=== PATIENT | female | born 1980 | race Caucasian/White ===

== ENCOUNTER 2021-02-28 07:16 | Emergency (ER) | payer MEDICAID ==
[~2021-02-28] VITALS: Ht 172.7 cm; Wt 77.1 kg
[2021-02-28 07:23] VITALS: BP 138/78
--- NOTE | 2021-02-28 07:27 | NUR ---
pt ambulated to bed 04
--- NOTE | 2021-02-28 07:31 | NUR ---
ERMD AT BEDSIDE.
--- NOTE | 2021-02-28 07:50 | NUR ---
41/F BIB SELF TO ED WITH C/O BACK PAIN, NAUSEA, DYSURIA AND HEMATURIA. PATIENT STATES SYMPTOMS BEGAN YESTERDAY AND HAVE BEEN WORSENING SINCE. PATIENT STATES SINCE THIS MORNING HAS BEEN HAVING FREQUENT URGES TO URINATE. PATIENT DENIES FEVERS, CP, SOB.
[2021-02-28 08:56] LABS: BILIRUBIN,URINE NEGATIVE (NEGATIVE); BLOOD, URINE 2+ (NEGATIVE); COLOR,URINE YELLOW (YELLOW); LEUKOCYTE ESTERASE ,URINE 1+ (NEGATIVE); NITRITE, URINE NEGATIVE (NEGATIVE); UGLUCOSE NEGATIVE (NEGATIVE)
[2021-02-28 09:27] LABS: APPEARANCE,URINE HAZY (CLEAR)
[2021-02-28] MEDS ORDERED: CEPH-588 PO (09:58)
[2021-02-28 10:04] VITALS: BP 123/89
--- NOTE | 2021-02-28 10:04 | NUR ---
Patient discharged with v/s stable. Written and verbal after care instructions ABOUT URINARY TRACT INFECTION given and explained. Patient alert, oriented and verbalized understanding of instructions. Ambulatory with steady gait. All questions addressed prior to discharge. ID band removed. Patient advised to follow up with PMD. Rx of KEFLEX given. Patient educated on indication of medication including possible reaction and side effects. Opportunity to ask questions provided and answered.
== END 2021-02-28 10:04 | disposition home or self-care (01) ==
LOC: MED 07:16
DX: N39.0 Urinary tract infection, site not specified (principal); M54.50 Low back pain, unspecified; R11.0 Nausea
CPT/HCPCS: 81001; 81025; 87086; 99283

== ENCOUNTER 2021-11-09 17:35 | Emergency (ER) | payer MEDICAID ==
[~2021-11-09 17:35] MED LIST: CEPH-588 PO
--- NOTE | 2021-11-09 18:50 | NUR ---
No answer from lobby or outside
--- NOTE | 2021-11-09 19:23 | NUR ---
CALLED TO TRIAGE, NO ANSWER
--- NOTE | 2021-11-09 20:13 | NUR ---
CALLED TO TRIAGE, NO ANSWER, LWBS
== END 2021-11-09 18:50 | disposition left against medical advice (07) ==
LOC: MED 17:35
DX: M54.50 Low back pain, unspecified (principal); Z53.21 Procedure and treatment not carried out due to patient leaving prior to being seen by health care provider